=== PATIENT | male | born 1960 | race African-American/Black ===

== ENCOUNTER 2019-03-18 08:04 | Emergency (ER) | payer OTHER ==
[~2019-03-18] VITALS: Ht 182.9 cm; Wt 100.6 kg
[2019-03-18] MEDS ORDERED: DEXAMETHASONE 4 MG TABLET PO ONE (08:30)
--- NOTE | 2019-03-18 09:04 | RAD ---
CHEST PA LATERAL History: Chest pain and cough Comparison: None. Findings: Frontal and lateral views of chest were obtained. The cardiomediastinal silhouette is normal. Pulmonary vasculature is normal. The lungs are clear. No pleural effusion or pneumothorax is seen. There is no acute bone abnormality. IMPRESSION: No acute cardiopulmonary process. Electronically signed by: William Mccarty MD (03/18/2019 9:00 AM) [facility]
[2019-03-18] MEDS ORDERED: PRED20TA PO (09:13)
--- NOTE | 2019-03-18 09:13 | PHYS DOC ---
Past History Past Medical History: High Cholesterol Past Surgical History: Other Additional Past Surgical Histo: scar tissue removed back of neck; Smoking: Non-smoker Alcohol Use: None Drug Use: None Adult General Chief Complaint Chief Complaint: CHEST PAIN-NON CARDIAC NATURE HPI HPI Patient is a 58 y/o male with past medical history of high cholesterol who presents to the ED with right sided chest pain that has been ongoing for the past few days. He denies any recent trauma or new activity prior to symptoms. Patient states he has been dealing with a cold for the past few days but has only started coughing 1 day ago. Patient endorses pain upon palpation but denies any pain normally. He describes the pain as a soreness with no radiation. Severity rated at 4-5/10. Patient does not have a history of HTN and is regularly around 120s at home but he usually has high blood pressure at the doctor's office. Denies fever/chills. Denies leg swelling or calf tenderness. Denies history of family history of DVT/PE. Review of Systems Review of Systems Constitutional: Denies fever or chills Eyes: Denies redness or eye pain HENT: Reports nasal congestion; denies earache Respiratory: Reports cough; denies shortness of breath or pleuritic pain Cardiovascular: Reports right sided chest pain, denies palpitations GI: Denies abdominal pain, nausea, or vomiting : Denies dysuria or hematuria Musculoskeletal: Reports right sided chest pain; denies leg swelling or calf tenderness Integument: Denies rash or skin lesions Neurologic: Denies headache, focal weakness or sensory changes Complete systems were reviewed and found to be within normal limits, except as documented in this note. Current Medications Current Medications Current Medications Medications (Trade) Dose Ordered Sig/Salome Start Time Stop Time Status Last Admin Dose Admin Dexamethasone (Decadron) 10 mg 1X ONCE 03/18/19 08:30 03/18/19 08:31 DC 03/18/19 08:34 10 MG Allergies Allergies Allergies Coded Allergies Type Severity Reaction Last Updated Verified No Known Drug Allergies 03/18/19 No Physical Exam Physical Exam Constitutional: Well developed, well nourished, no acute distress, non-toxic louisa earance HENT: Normocephalic, atraumatic, oropharynx moist Eyes: Conjunctiva normal, no discharge Neck: Normal range of motion, no tenderness, supple Cardiovascular: Heart rate normal, regular rhythm Lungs & Thorax: Bilateral breath sounds clear to auscultation, no wheezing, ten derness upon palpation on right side which reproduces pain Abdomen: Soft, no tenderness Skin: Warm, dry, no erythema, no rash Back: No tenderness, no CVA tenderness Extremities: No tenderness, ROM intact, no edema Neurologic: Alert and oriented X 3, no focal deficits noted Psychologic: Affect normal, judgement normal Current Patient Data Vital Signs Vital Signs Date Time Temp Pulse Resp B/P (MAP) Pulse Ox O2 Delivery O2 Flow Rate FiO2 03/18/19 08:12 98.0 81 18 99 Room Air EKG EKG ECG at 0827, NSR, 80 BPM, no ST elevation, Q wave in I , baseline artifact noted Radiology/Procedures Radiology/Procedures PROCEDURE: CHEST PA & LATERAL CHEST PA LATERAL History: Chest pain and cough Comparison: None. Findings: Frontal and lateral views of chest were obtained. The cardiomediastinal silhouette is normal. Pulmonary vasculature is normal. The lungs are clear. No pleural effusion or pneumothorax is seen. There is no acute bone abnormality. IMPRESSION: No acute cardiopulmonary process. Electronically signed by: William Mccarty MD (03/18/2019 9:00 AM) [facility] Course & Med Decision Making Course & Med Decision Making Patient with low cardiac risk factors presents with atypical chest pain which is reproducible with palpation on right side; Patient denies diaphoresis, nausea, or pleuritic chest pain; No rash appreciated. Screening EKG normal, CXR w/out acute process. Symptoms combined with URI likely costochondritis. Symptomatic oral steroid provided. Patient stable for discharge with outpatient follow-up with PCP. Discussed findings and plan with patient and family, who acknowledge understanding and agreement. Dragon Disclaimer Claudiaon Disclaimer This electronic medical record was generated, in whole or in part, using a voice recognition dictation system. Departure Departure: Impression: Primary Impression: Chest wall pain Additional Impression: URI (upper respiratory infection) Disposition: 01 HOME, SELF-CARE Condition: STABLE Referrals: ELEUTERIO OSBORN DO (PCP) Patient Instructions: Costochondritis, [id number], Upper Respiratory Infection, Adult, [id number] Scripts Prednisone (PREDNISONE) 20 Mg Tablet 2 TAB PO DAILY for costochondritis, #8 TAB Start this medication tomorrow 03/19/19 Prov: MARKEL GARCIA DO 03/18/19 HEART Score for Chest Pain PTs The HEART Score for CP Pts HEART Score for Chest Pain: HEART Score for Chest Pain Response (Comments) Value History Slighlty/Non-Suspicious 0 ECG Normal 0 Age >45 - < 65 1 Risk Factors 1 or 2 Risk Factors 1 Total 2 Risk Factors: Risk Factors: DM, Current or recent (<one month) smoker, HTN, HLP, family history of CAD, obesity. Risk Scores: Score 0 - 3: 2.5% MACE over next 6 weeks - Discharge Home Score 4 - 6: 20.3% MACE over next 6 weeks - Admit for Clinical Observation Score 7 - 10: 72.7% MACE over next 6 weeks - Early Invasive Strategies Problem Qualifiers Additional Impression: URI (upper respiratory infection) URI type: unspecified URI Qualified Codes: J06.9 - Acute upper respiratory infection, unspecified MARKEL GARCIA DO Mar 18, 2019 09:13
[2019-03-18 09:15] VITALS: BP 126/80
--- NOTE | 2019-03-18 14:51 | EKG ---
[address] [address] Test Date: 2019-03-18 Test Time: 08:30:08 Pat Name: MIMI LINDSEY Department: Room: Gender: M Marketing Clerk: : 1960 Requested By: MARKEL GARCIA Order Number: [id number] Reading MD: Measurements Intervals [place] Rate: 76 P: -55 NV: 182 QRS: -59 QRSD: 76 T: -47 QT: 348 QTc: 395 Interpretive Statements SINUS RHYTHM ABNORMAL LEFT AXIS DEVIATION QRS(T) CONTOUR ABNORMALITY CONSISTENT WITH INFERIOR INFARCT AGE UNDETERMINED ABNORMAL ECG RI6.01 No previous ECG available for comparison
== END 2019-03-18 09:15 | disposition home or self-care (01) ==
LOC: ER 08:04
DX: J06.9 Acute upper respiratory infection, unspecified (principal); R07.89 Other chest pain; E78.00 Pure hypercholesterolemia, unspecified
CPT/HCPCS: 71046; 93005; 99284; J8540